=== PATIENT | male | born 2005 | race Asian ===

== ENCOUNTER 2024-05-16 16:43 | Emergency (ER) | payer OTHER ==
[2024-05-16] MEDS ORDERED: Acetaminophen 500 MG TAB ONE (17:07)
[2024-05-16] MEDS ORDERED: Dexamethasone 10 MG/ML VIAL ONE (17:40)
== END 2024-05-16 17:54 | disposition home or self-care (01) ==
LOC: ERS 16:43
DX: J02.9 Acute pharyngitis, unspecified (principal)
CPT/HCPCS: 87081; 87430; 99283; J1100